=== PATIENT | male | born 1985 | race Caucasian/White ===

== ENCOUNTER 2019-12-05 15:54 | Emergency (ER) | payer BC, SELFPAY ==
[2019-12-05 16:07] VITALS: BP 139/95; PULSE 106; RESP 20; TEMP 37.3; O2SAT 100
--- NOTE | 2019-12-05 16:19 | ED.DENTAL ---
HPI - Dental/Oral General Chief complaint: Dental/Oral Stated complaint: Dental/Oral Time Seen by Provider: 12/05/19 16:20 Source: patient and RN notes reviewed History of Present Illness HPI Narrative: Patient is a 34-year-old male that presents the urgent care with complaints of dental pain to the lower left. Patient states he had work done on the tooth approximately 1 month ago and he is had some sensitivity to cold and heat for the last few days. Patient states it is worsened. States that he has been using Orajel and ibuprofen and constantly brushing the tooth with a toothbrush. Patient states that he will follow-up with his doctor on Sunday but thought he may be getting an infection . Denies of any nausea or vomiting. Denies of fever. Denies a bad taste in the mouth. No other acute complaints. No acute distress noted. Patient had a plan of care. Related Data Allergies Allergy/AdvReac Type Severity Reaction Status Date / Time No Known Allergies Allergy Verified 12/05/19 16:28 Review of Systems Review of Systems: Narrative: CONSTITUTIONAL: Denies fever, chills, or sweats. EYES: Denies visual changes, redness, or discharge. ENT: Denies rhinorrhea, congestion, sore throat, or otalgia. Reports of lower left dental pain CARDIOVASCULAR: Denies chest pain, palpitations, or edema. RESPIRATORY: Denies cough or dyspnea. GASTROINTESTINAL: Denies abdominal pain, nausea, vomiting, or diarrhea. GENITOURINARY: Denies dysuria or hematuria. SKIN: Denies rash or itching. MUSCULOSKELETAL: Denies back pain, joint pain, or myalgia. NEUROLOGIC: Denies headache, numbness, or weakness. All other systems reviewed are negative, except as documented in HPI. PMFSH Comments At the time of my signature, I reviewed and agree with the nursing past medical, surgical, social, and family history. There is no relevant family history pertinent to the patient complaint. Exam Narrative: Exam Narrative: GENERAL: This is a well-nourished, well-developed patient, in no apparent distress. HEAD: normocephalic, atraumatic. EYES: PERRL. Sclera clear/white. Vision is grossly intact. EARS: External ears normal NOSE: External nose normal with no obvious nasal discharge THROAT: Mucous membranes moist, posterior pharynx clear. NECK: Neck supple, non-tender without lymphadenopathy DENTAL: No obvious erythema, edema edema, dental abscess noted to the lower left quadrant. Notable carry to the anterior aspect of tooth #18 with surrounding irritation due to excessive brushing CARDIOVASCULAR: Regular rate and rhythm without murmurs, gallops, or rubs. RESPIRATORY: Clear to auscultation. Breath sounds equal bilaterally. No wheezes, rales, or rhonchi. SKIN: warm, intact with no suspicious lesions or rash, good texture and turgor. NEURO: awake, alert, and oriented to person, place and time. There were no obvious focal neurologic abnormalities. EXTREMITIES: No clubbing, cyanosis, or edema. Reason Course Vital Signs Vital signs: Vital Signs Temperature 99.1 F 12/05/19 16:07 Pulse Rate 106 H 12/05/19 16:07 Respiratory Rate 12/05/19 16:07 Blood Pressure 139/95 H 12/05/19 16:07 Pulse Oximetry 100 12/05/19 16:07 Temperature 99.1 F 12/05/19 16:07 Pulse Rate 106 H 12/05/19 16:07 Respiratory Rate 12/05/19 16:07 Blood Pressure 139/95 H 12/05/19 16:07 Pulse Oximetry 100 12/05/19 16:07 Reviewed?patient is informed that they may have pre-hypertension or hypertension based on a blood pressure reading in the department. I recommend the patient call the primary care provider listed on their discharge instructions or a physician of their choice this week to arrange follow-up for further evaluation of possible pre-hypertension or hypertension. MDM - Dental/Oral MDM Narrative Medical decision making narrative: Advised the patient to continue using ibuprofen and Orajel as needed for pain. Stop the excessive brushing and do not use the dental pick. Do
== END 2019-12-05 16:35 | disposition home or self-care (01) ==
PROVIDERS: Emergency Provider Nurse Practitioner Family
DX: K08.89 Other specified disorders of teeth and supporting structures (principal)
CPT/HCPCS: 99213; G0463